=== PATIENT | male | born 1995 | race Caucasian/White ===

== ENCOUNTER → 2020-10-28 08:53 | Outpatient (BNVA) | payer BC, SELFPAY | PROVIDERS: Family Provider Nurse Practitioner Family; PCP Registered Nurse; Referring Provider Registered Nurse; Visit Provider Nurse Practitioner | DX: S06.0X1A Concussion with loss of consciousness of 30 minutes or less, initial encounter (principal); R56.1 Post traumatic seizures; Y93.79 Activity, other specified sports and athletics | CPT/HCPCS: 99204 ==

== ENCOUNTER → 2023-06-23 14:23 | Outpatient (BNVA) | payer BC, SELFPAY | PROVIDERS: Family Provider Nurse Practitioner Family; PCP Registered Nurse; Visit Provider Registered Nurse | DX: J32.9 Chronic sinusitis, unspecified (principal) | CPT/HCPCS: 87400 ==

== ENCOUNTER 2024-07-09 08:17 | Outpatient (CLI) | payer OTHER, SELFPAY ==
--- NOTE | 2024-07-09 08:30 | CT_ITS ---
WS: [id number] CT HEAD NONCONTRAST HISTORY: S06.0X1A - Concussion with loss of consciousness of 30 minutes TECHNIQUE: Contiguous axial imaging performed through the brain. Bone and soft tissue windows. Sagittal and coronal reformats reviewed. All CT scans at [facility] use at least one of these dose optimization techniques: automated exposure control; mA and/or kV adjustment per patient size (includes targeted exams where dose is matched to clinical indication); or iterative reconstruction. DLP: 1016.58 mGy.cm COMPARISON: None available. No acute intracranial hemorrhage, midline shift or mass effect. No atrophy or prior infarcts or herniation. Ventricles: Normal size with no hydrocephalus. Paranasal sinuses: As visualized are clear. Mastoid air cells: Well pneumatized. Calvarium and scalp: Skull is intact with no soft tissue edema or swelling. CT/CT head wo con* [id number] IMPRESSION: Negative head CT.
== END 2024-07-09 08:18 | disposition home or self-care (01) ==
PROVIDERS: PCP Registered Nurse; Visit Provider Registered Nurse
DX: S06.0X1A Concussion with loss of consciousness of 30 minutes or less, initial encounter (principal); X58.XXXA Exposure to other specified factors, initial encounter
CPT/HCPCS: 70450